=== PATIENT | male | born 1980 | race Caucasian/White ===

== ENCOUNTER 2019-07-31 08:04 | Day surgery (SDC) | payer OTHER ==
[~2019-07-31] VITALS: Ht 182.9 cm; Wt 106.1 kg
[2019-07-31 08:37] VITALS: BP 135/78
[2019-07-31 16:20] VITALS: BP 121/68
--- NOTE | 2019-07-31 16:20 | NUR ---
RECEIVED PT. FROM RECOVERY DEPT. PT. IS S/P O.R.I.F. OF R TIBIA FRACTURE TODAY. PT. A/A/O X3. NO SOB, NO N/V NOTED. PT. DENIES ANY PAIN AT THIS TIME. PT. HAS POST-OP DRESSING TO RLE. POST-OP DRESSING STAINED WITH A SMALL AMT. OF BLOOD. MILD SWELLING NOTED TO R KNEE. PT. IS ABLE TO MOVE ALL R TOES. IV H/L NOTED TO R HAND. B/P= 121/68 (84), P= 94, R.R.= 20, T= 97.0, O2 SAT.= 97% (RA). BED IN LOW POS., CALL LIGHT WITHIN REACH. SIDE RAILS UP X3. WILL CONTINUE TO MONITOR.
--- NOTE | 2019-07-31 17:50 | NUR ---
NASAL SWAB OBTAINED AND SENT TO LAB FOR MRSA NARES SCREENING.
[2019-07-31 19:00] VITALS: BP 125/70
--- NOTE | 2019-07-31 19:00 | NUR ---
PT. TOLERATED DIET WELL. NO N/V NOTED. PT. VOIDED FREELY POST-OP.
--- NOTE | 2019-07-31 19:30 | NUR ---
D/C HOME INSTRUCTIONS GIVEN TO PT. AND PT.'S SPOUSE WHO BOTH VERBALIZED UNDERSTANDING OF INSTRUCTIONS. IV H/L TO R HAND REMOVED. PT. WAS INSTRUCTED TO NOTIFY PHYSICIAN OR GO TO THE NEAREST ED IF EXCESSIVE BLEEDING, SWELLING, OR REDNESS AT SURGICAL SITE OCCURS. PT. WAS MADE AWARE OF NON-WEIGHT BEARING STATUS TO HIS RLE. UNABLE TO TAKE PHOTOGRAPH OF SURGICAL WOUND DUE TO PT. BEING S/P O.R.I.F. OF R TIBIA FRACTURE TODAY.
== END 2019-07-31 19:55 | disposition home or self-care (01) ==
LOC: MU 08:04 → DS 08:04 → OR 10:30 → DS 10:30 → MU 15:51 → DS 19:55
DX: S82.141A Displaced bicondylar fracture of right tibia, initial encounter for closed fracture (principal); Z79.899 Other long term (current) drug therapy; Y93.39 Activity, other involving climbing, rappelling and jumping off; Y93.66 Activity, soccer; Y92.89 Other specified places as the place of occurrence of the external cause; Y99.8 Other external cause status
CPT/HCPCS: C1713; G0378; J0690; J1885; J2175; J2250; J2270; J2405; J2704; J3010; J3490; J7120